=== PATIENT | male | born 1975 | race Caucasian/White ===

== ENCOUNTER 2022-08-21 19:50 | Emergency (ER) | payer BC ==
[~2022-08-21] VITALS: Ht 413.8 cm; Wt 90.9 kg
[2022-08-21 20:09] VITALS: BP 133/90
[2022-08-21] MEDS ORDERED: HYDR-3965 PO (22:48)
[2022-08-21] MEDS ORDERED: oxyCODONE/APAP 5-325mg tablet PO ONE (22:50)
== END 2022-08-21 23:01 | disposition home or self-care (01) ==
LOC: ER 19:51
DX: M54.59 Other low back pain (principal); Z88.0 Allergy status to penicillin; W19.XXXA Unspecified fall, initial encounter; Y93.89 Activity, other specified; Y92.89 Other specified places as the place of occurrence of the external cause; Y99.8 Other external cause status
CPT/HCPCS: 72170; 99284